=== PATIENT | male | born 1945 | race Caucasian/White ===

== ENCOUNTER 2017-01-07 03:31 | Outpatient (CLI) | payer MEDICARE, OTHER | END 2017-01-07 03:32 | disposition short-term general hospital (02) | LOC: EMS 03:31 | PROVIDERS: ATTEND Surgery | DX: R10.31 Right lower quadrant pain (principal) | CPT/HCPCS: A0425; A0427 ==

== ENCOUNTER 2020-03-27 14:05 | Outpatient (CLI) | payer MEDICARE, OTHER | END 2020-03-27 14:06 | disposition short-term general hospital (02) | LOC: EMS 14:05 | PROVIDERS: ATTEND Emergency Medicine | DX: R41.82 Altered mental status, unspecified (principal); R53.1 Weakness | CPT/HCPCS: A0425; A0427 ==

== ENCOUNTER 2020-04-03 12:02 | Outpatient (CLI) | payer MEDICARE, OTHER | END 2020-04-03 12:03 | disposition short-term general hospital (02) | LOC: EMS 12:02 | DX: R31.0 Gross hematuria (principal) | CPT/HCPCS: A0425; A0429 ==

== ENCOUNTER 2020-05-08 10:28 | Outpatient (CLI) | payer MEDICARE, OTHER | END 2020-05-08 10:29 | disposition short-term general hospital (02) | LOC: EMS 10:28 | DX: R60.0 Localized edema (principal) | CPT/HCPCS: A0425; A0429; A0888 ==